=== PATIENT | male | born 1980 | race Caucasian/White ===

== ENCOUNTER 2017-03-29 17:58 | Emergency (ER) | payer MEDICAID, OTHER ==
[2017-03-29] MEDS ORDERED: Fluorescein Sodium TOPICAL* 1 MG TEST ONE ×4 (18:38)
--- NOTE | 2017-03-29 18:51 | ED ---
Throat Pain/Nasal Congestion - HPI Summary HPI Summary: Pt here w/ Rt eye pain since last night. Picked up his daughter who was holding a post card and she accidentally hit him in the eye with it. He has a h/o abrasion to the eye and this feels similar. Eye is watering. No change in vision. Has a 2ndry LUNDBERG from pain so took an aleve this morning. Tetanus is UTD. - History of Current Complaint Chief Complaint: EDEyeProblem Time Seen by Provider: 03/29/17 18:12 Hx Obtained From: Patient - Allergies/Home Medications Allergies/Adverse Reactions: Allergies Allergy/AdvReac Type Severity Reaction Status Date / Time No Known Allergies Allergy Verified 03/29/17 18:23 PMH/Surg Hx/FS Hx/Imm Hx Previously Healthy: Yes Endocrine/Hematology History: Denies: Hx Anticoagulant Therapy, Hx Blood Disorders, Autoimmune Disease Cardiovascular History: Reports: Hx Hypertension Musculoskeletal History: Reports: Hx Back Problems - DDD and mass pushing from spine into ab? 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 Negative: Blurred Vision ENT: Negative Gastrointestinal: Negative Negative: Vomiting, Nausea Positive: no symptoms reported Skin: Negative Positive: Headache - see HPI Psychological: Normal All Other Systems Reviewed And Are Negative: Yes Physical Exam Triage Information Reviewed: Yes Vital Signs On Initial Exam: Initial Vitals Temp Pulse Resp BP Pulse Ox 99.0 F 97 20 143/89 99 03/29/17 18:03 03/29/17 18:03 03/29/17 18:03 03/29/17 18:03 03/29/17 18:03 Vital Signs Reviewed: Yes Appearance: Positive: Well-Appearing, Well-Nourished, Pain Distress - mild Skin: Positive: Warm, Dry - Rt palpebrae w/ mild erythema - no edema, no lesions Head/Face: Positive: Normal Head/Face Inspection Eyes: Positive: EOMI, GUNNER, Conjunctiva Clear, Discharge - watery, Other: - see EYE exam for details ENT: Positive: Hearing grossly normal, Pharynx normal Respiratory/Lung Sounds: Positive: Breath Sounds Present Cardiovascular: Positive: RRR Musculoskeletal: Positive: Normal, Strength/ROM Intact Neurological: Positive: Normal, Sensory/Motor Intact, Alert, Oriented to Person Place, Time, CN Intact II-III Psychiatric: Positive: Normal Procedures - Eye Procedure Alcaine Drops Administered: No - tetracaine + fluouresceine - abrasion at 9:00, (-) Siedel's sign Eye Irrigated w/ Saline (ccs): 3 Antibiotic Ointment/Drps Admin: right eye - erythromycin Diagnostics - Vital Signs Vital Signs Temp Pulse Resp BP Pulse Ox 03/29/17 18:15 99.1 F 81 16 130/79 99 03/29/17 18:03 99.0 F 97 20 143/89 99 - Laboratory Lab Statement: Any lab studies that have been ordered have been reviewed, and results considered in the medical decision making process. EENT Course/Dx - Diagnoses Provider Diagnoses: Corneal abrasion, right Discharge - Discharge Plan Condition: Stable Disposition: HOME Prescriptions: Erythromycin OPTH OINT* [Erythromycin 0.5% OPTH OINT*] 1 applic RIGHT EYE TID # 1 tube Patient Education Materials: Corneal Abrasion (ED) Referrals: Geoffrey Quick MD [Medical Doctor] - Additional Instructions: Avoid rubbing eye You may use eye wash for comfort Apply antibiotic eye ointment every 8 hours for 1 week - see directions for use You may take ibuprofen with food for pain *If you have worse pain tomorrow or develop visual change, please follow-up with Dr. Quick - contact information included here
[2017-03-29] MEDS ORDERED: Erythromycin TOPICAL GEL* 30 GM TUBE TOPICAL ONE (19:17)
[2017-03-29] MEDS ORDERED: Erythromycin OPTH OINT* APPLIC OINT RIGHT EYE ONE (19:31)
[2017-03-29 19:40] VITALS: BP 115/73
== END 2017-03-29 19:38 | disposition home or self-care (01) ==
LOC: ED 17:58
DX: S05.01XA Injury of conjunctiva and corneal abrasion without foreign body, right eye, initial encounter (principal); H53.149 Visual discomfort, unspecified; R51 Headache; F17.210 Nicotine dependence, cigarettes, uncomplicated; W22.8XXA Striking against or struck by other objects, initial encounter; Y93.9 Activity, unspecified; Y92.89 Other specified places as the place of occurrence of the external cause
CPT/HCPCS: 99282; A9270-GY

== ENCOUNTER 2017-10-12 15:19 | Emergency (ER) | payer OTHER ==
[2017-10-12] MEDS ORDERED: Tetan/Diph/Pertus SYR(Tdap)* 0.5 ML SYR(BOOSTRIX) use SYR IM ONE (15:32)
--- NOTE | 2017-10-12 17:02 | ED ---
Skin Complaint - HPI Summary HPI Summary: Lt hand dominant pt here w/ Rt thumb laceration. Accidentally sliced base of thumb while lifting a refrigerator earlier today. Reports he cleaned out his wound which only had mild debris in it. Does not feel he has retained foreign bodies. Denies numbness tingling or weakness. Immunizations may not be up-to- date okay to boost tetanus today. Does not want anything for pain. - History of Current Complaint Chief Complaint: EDLacSutureRecheck Time Seen by Provider: 10/12/17 15:32 Stated Complaint: RT THUMB LAC Hx Obtained From: Patient Pain Intensity: 0 - Allergy/Home Medications Allergies/Adverse Reactions: Allergies Allergy/AdvReac Type Severity Reaction Status Date / Time No Known Allergies Allergy Verified 03/29/17 18:23 PMH/Surg Hx/FS Hx/Imm Hx Previously Healthy: Yes Endocrine/Hematology History: Denies: Hx Anticoagulant Therapy, Hx Blood Disorders, Hx Diabetes, Autoimmune Disease Cardiovascular History: Reports: Hx Hypertension Musculoskeletal History: Reports: Hx Back Problems - DDD and mass pushing from spine into ab? 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 Hx Substance Use: No Substance Use Type: Reports: None Hx Tobacco Use: Yes Smoking Status (MU): Current Every Day Smoker Amount Used/How Often: 1PPD Review of Systems Constitutional: Negative Positive: no symptoms reported Musculoskeletal: Negative Skin: Other - lac Neurological: Negative Psychological: Normal All Other Systems Reviewed And Are Negative: Yes Physical Exam Triage Information Reviewed: Yes Vital Signs On Initial Exam: Initial Vitals Temp Pulse Resp BP Pulse Ox 98.1 F 71 16 127/73 99 10/12/17 15:27 10/12/17 15:27 10/12/17 15:27 10/12/17 15:27 10/12/17 15:27 Vital Signs Reviewed: Yes Appearance: Positive: Well-Appearing, No Pain Distress, Well-Nourished Skin: Positive: Warm, Skin Color Reflects Adequate Perfusion - J-shaped laceration over dorsal aspect base of right thumb (over MCP joint) Head/Face: Positive: Normal Head/Face Inspection Eyes: Positive: Normal, EOMI ENT: Positive: Hearing grossly normal Cardiovascular: Positive: Pulses are Symmetrical in both Upper and Lower Extremities Musculoskeletal: Positive: Normal, Strength/ROM Intact - Extensor tendon appears to be intactno visible laceration and strength 5 out of 5 without gross deformity or weakness Neurological: Positive: Normal, Sensory/Motor Intact, Alert, Oriented to Person Place, Time, CN Intact II-III Procedures - Laceration/Wound Repair 1 Location: upper extremity - right thumb Description: Irregular - J-shaped Anesthesia: Local, 1.0%, Lido Length, Depth and Shape: 1.75 cm x 3 mm Betadine Prep?: Yes Laceration/Wound Explored: clean Closure: Single Layer Suture Type: Nylon - 5-0 Number of Sutures: 6 Layer Closure?: No Sterile Dressing Applied?: Yes - triple anbx ointment + sterile gauze + Coban hemodynamically stable Diagnostics - Vital Signs Vital Signs Temp Pulse Resp BP Pulse Ox 10/12/17 15:27 98.1 F 71 16 127/73 99 - Laboratory Lab Statement: Any lab studies that have been ordered have been reviewed, and results considered in the medical decision making process. Course/Dx - Diagnoses Provider Diagnoses: Laceration of right thumb Discharge - Discharge Plan Condition: Stable Disposition: HOME Patient Education Materials: Finger Laceration (ED), Care For Your Stitches (ED ) Referrals: No Primary Care Phys,NOPCP [Primary Care Provider] - Additional Instructions: Keep dressing clean, dry and in place for 48 hours. After this time, you may remove dressing and gently wash the wound with soap and water, pat dry with clean cloth, and reapply triple antibiotic ointment plus clean gauze dressing. Follow-up with PCP or return to ED in 10-14 days for wound check and suture removal. *If you develop redness, swelling, streaking, purulent drainage, fever, chills, return to the ED.
[2017-10-12 17:23] VITALS: BP 117/78
== END 2017-10-12 17:22 | disposition home or self-care (01) ==
LOC: ED 15:19
DX: S61.011A Laceration without foreign body of right thumb without damage to nail, initial encounter (principal); W45.8XXA Other foreign body or object entering through skin, initial encounter; Y92.9 Unspecified place or not applicable; F17.210 Nicotine dependence, cigarettes, uncomplicated
CPT/HCPCS: 90715; 99281